=== PATIENT | female | born 1960 | race Caucasian/White ===

== ENCOUNTER 2021-01-13 02:21 | Emergency (ER) | payer OTHER, SELFPAY ==
--- NOTE | ~2021-01-13 | XR_ITS ---
EXAMINATION: XR chest 2V 01/13/2021 02:57 INDICATION: Chest pain. History of mitral valve defect. PROCEDURE: AP and lateral views of the chest COMPARISON: No prior studies for comparison. FINDINGS: The lungs are clear. The cardiomediastinal silhouette is within normal limits. There are no pleural effusions. There is no pneumothorax suspected. IMPRESSION: 1: NO ACUTE CARDIOPULMONARY DISEASE. Reviewed, dictated and finalized at location A.
--- NOTE | 2021-01-13 02:39 | ECG_ITS ---
Measurements Intervals [place] Rate: 69 P: 16 [place]: 166 QRS: 8 QRSD: 85 T: 25 QT: 380 QTc: 408 Interpretive Statements SINUS RHYTHM VOLTAGE CRITERIA FOR LVH BASELINE ARTIFACT- I, III, AVL BORDERLINE ECG Electronically Signed On 01-13-2021 7:07:41 CDT by Bradly Celis D.O.
[2021-01-13 02:49] VITALS: BP 150/80; PULSE 64; RESP 17; TEMP 36.5; O2SAT 100
[2021-01-13 02:53] LABS: Basophils Absolute Auto 0.1 K/mm3 (0.0-0.1); Basophils Percent Auto 0.9 % (0.2-1.2); Eosinophils Absolute Auto 0.1 K/mm3 (0-0.3); Eosinophils Percent Auto 1.4 % (0-4.4); Hematocrit 44.9 % (37.0-47.0); Hemoglobin 14.2 g/dL (12.0-15.0); Immature Granulocyte Absolute 0.01 K/mm3 (0.00-0.031); Immature Granulocyte Percent A 0.1 % (0-0.5); Lymphocytes Absolute Auto 1.22 K/mm3 (0.9-3.2); Lymphocytes Percent Auto 17.5 % (18.3-44.2); Mean Corpuscular HGB Conc 31.6 g/dl (32-36); Mean Corpuscular Hemoglobin 28.9 pg (26-34); Mean Corpuscular Volume 91.3 fl (80-100); Mean Platelet Volume 10.9 fl (7.4-10.4); Monocytes Absolute Auto 0.3 K/mm3 (0.1-0.6); Monocytes Percent Auto 4.7 % (2.6-8.5); Neutrophils Absolute Auto 5.3 K/mm3 (1.3-6.7); Neutrophils Percent Auto 75.4 % (45.5-73.1); Platelet Count Result 222 k/mm3 (150-375); Red Blood Count 4.92 M/mm3 (4.2-5.4)
[2021-01-13 03:13] LABS: INR 0.9; Prothrombin Time 11.7 Seconds (11.1-14.7)
[2021-01-13 03:23] LABS: Anion Gap 6 mmol/L (8-16); Blood Urea Nitrogen 15 mg/dL (7-17); Calcium 9.7 mg/dL (8.4-10.2); Carbon Dioxide 26 mmol/L (22-30); Chloride 108 mmol/L (98-107); Estimated Glomerular Filt Rate > 60; Glucose 123 mg/dL (65-110); Potassium 4.1 mmol/L (3.4-5.0); Sodium 140 mmol/L (137-145)
[2021-01-13 03:35] LABS: Troponin I < 0.012 ng/mL (0.000-0.034)
--- NOTE | 2021-01-13 04:21 | ED.DIZZY ---
HPI - Dizziness History of Present Illness HPI Narrative: 60 yo female presents to the ED c/o dizziness. She reports that she awoke from sleep feeling violently dizzy. This is associated with nausea and vomiting. Worse with eyes open. exacerbated by movement. No light headedness. No tinnitus, weakness, numbness, confusion. She has never had these symptoms before. She does mention additionally that she had a brief episode of chest pain before bed last night, which she thought was GI in origin. Related Data Allergies Allergy/AdvReac Type Severity Reaction Status Date / Time latex Allergy Mild HANDS RED Verified 03/15/18 14:24 FROM LATEX GLOVES Penicillins Allergy Mild FACE Verified 03/15/18 14:24 SWELLING Sulfa (Sulfonamide Allergy Unknown RASH Verified 03/15/18 14:24 Antibiotics) Review of Systems Review of Systems: All systems reviewed & are unremarkable except as noted in HPI and below Constitutional: Constitutional: Denies fever(s) Eyes: Eyes: Denies change in vision ENT: Reports vertigo, Denies nasal congestion and Denies sore throat Respiratory: Respiratory: Denies dyspnea Genitourinary: Genitourinary: Reports no additional female genitourinary complaints Neurologic: Denies syncope and Denies headache(s) [facility] Social History Social History (Updated 01/21/21 @ 17:12 by Nick Silva MD) Living arrangements: with family Gender identity (if verbalized by the patient): Female Sexual Orientation (if Verbalized by the Patient): Straight or Heterosexual Exam Const: General: healthy appearing, no acute distress and alert Orientation/consciousness: patient oriented x3 HENMT: Head: normal to inspection Ears: TM's normal bilaterally, EAC's normal and external ear abnormal Face and sinus: normal facial exam Eyes: Conjunctivae: conjunctivae normal Pupils: Equal, round and reactive pupils present EOM: EOMs intact bilaterally Neck: Neck: normal visual inspection and no lymphadenopathy Resp: Effort & Inspection: normal respiratory effort Auscultation: clear to auscultation bilaterally, no rales, no rhonchi and no wheezes Cardio: Jugular venous distension: no JVD Rate: regular rate Rhythm: regular rhythm Heart sounds: no murmurs GI: Inspection: non-distended GI Palp: Yes Soft to palpation and No Tenderness to palpation present (GI) Skin: General skin exam: normal color Neuro: General: patient oriented x3, moves all extremities, no focal motor deficits and CN's II-XI intact bilaterally Cranial nerves: Yes Nystagmus present horizontal Speech: normal speech Extrem: General: normal to inspection and no edema Psych: Appearance: well kempt Affect: normal affect Course Vital Signs Vital signs: Vital Signs Temperature 36.5 C 01/13/21 02:49 Pulse Rate 64 01/13/21 02:49 Respiratory Rate 17 01/13/21 02:49 Blood Pressure 150/80 H 01/13/21 02:49 Pulse Oximetry 100 01/13/21 02:49 Temperature 36.5 C 01/13/21 02:49 Pulse Rate 62 01/13/21 06:39 Respiratory Rate 12 01/13/21 06:39 Blood Pressure 157/82 H 01/13/21 06:39 Pulse Oximetry 99 01/13/21 06:39 MDM - Dizziness MDM Narrative Medical decision making narrative: Presentation consistent with BPPV. Nearly resolved with treatment. Lab Data Attestation: I reviewed the patient's lab results. Result diagrams: 01/13/21 02:47 01/13/21 03:07 Labs: Lab Results 01/13/21 01/13/21 01/13/21 Range/Units 02:47 02:47 03:07 WBC 7.0 (4.5-10.0) K/mm3 RBC 4.92 (4.2-5.4) M/mm3 Hgb 14.2 (12.0-15.0) g/dL Hct 44.9 (37.0-47.0) % MCV 91.3 (80-100) fl MCH 28.9 (26-34) pg MCHC 31.6 L (32-36) g/dl RDW 13.0 (11.5-14.5) % Plt Count 222 (150-375) k/mm3 MPV 10.9 H (7.4-10.4) fl Immature Gran % (Auto) 0.1 (0-0.5) % Neut % (Auto) 75.4 H (45.5-73.1) % Lymph % (Auto) 17.5 L (18.3-44.2) % [place] % (Auto) 4.7 (2.6-8.5) %
[2021-01-13] MEDS: MECLIZINE HCL 25 MG TABLET PO (04:22)
[2021-01-13 04:32] VITALS: BP 137/77; PULSE 68; RESP 20; O2SAT 99
[2021-01-13 05:15] VITALS: BP 136/80; PULSE 58; RESP 18; O2SAT 95
[2021-01-13] MEDS: SODIUM CHLORIDE 0.9% IV 1,000 ML 999 ML IV CONT (05:41)
[2021-01-13 06:02] VITALS: BP 145/74; PULSE 60; RESP 18; O2SAT 95
--- NOTE | 2021-01-13 06:38 | PC.NURSE ---
pt ambulated w/ no difficulties. denies any nausea or dizziness.
[2021-01-13 06:39] VITALS: BP 157/82; PULSE 62; RESP 12; O2SAT 99
--- NOTE | 2021-02-04 05:56 | PC.NURSE ---
LATE ENTRYNS stopped prior to pt discharge. This note is being entered to document information to the patient's record. The following information was omitted on [02/04/21], by [francheska damon].
== END 2021-01-13 06:41 | disposition home or self-care (01) ==
PROVIDERS: Emergency Provider Emergency Medicine; PCP Family Medicine Sports Medicine
DX: H81.10 Benign paroxysmal vertigo, unspecified ear (principal); R94.31 Abnormal electrocardiogram [ECG] [EKG]; R07.9 Chest pain, unspecified
CPT/HCPCS: 36415; 71046; 80048; 84484; 85025; 85610; 85730; 93005; 96360; 99284; A9270; J7030